=== PATIENT | female | born 1960 | race Caucasian/White ===

== ENCOUNTER 2017-11-25 06:37 | Day surgery (SDC) | payer BC ==
[2017-11-21 10:37] VITALS: BMI 25.2
[~2017-11-25 06:37] MED LIST: LACTATED RINGERS 1,000 ML IV SCH; LIDOCAINE 1% 20 ML VIAL (10MG/ML) FOR IV START INTRADERMA PRN; MIDAZOLAM 2 MG/2 ML VIAL IV PRN
[2017-11-25 07:10] VITALS: TEMP 98.4
[2017-11-25 07:12] LABS: Glucose,Whole Blood 249 mg/dL (75-99)
[2017-11-25] MEDS ORDERED: PROPOFOL 10 MG/ML 20 ML VIAL IV ONE (07:32)
[2017-11-25] MEDS ORDERED: MIDAZOLAM 2 MG/2 ML VIAL ONE (07:32)
[2017-11-25] MEDS ORDERED: LIDOCAINE 1% INJ 10MG/ML (20 ML MDV) ONE (07:32)
--- NOTE | 2017-11-25 08:09 | P.PCN ---
Date of Procedure: 11/25/17 Preoperative Diagnosis: Screening colonoscopy, family history of colon polyps, patient last scope 2006 Postoperative Diagnosis: Internal hemorrhoids Procedure(s) Performed: Colonoscopy, anoscopy Anesthesia: MAC Surgeon: Lashay Perez Estimated Blood Loss (ml): 0 IV fluids (ml): 300 Pathology: none sent Condition: stable Disposition: PACU Indications for Procedure: Patient's last colonoscopy 2006, family history colon polyps Operative Findings: Internal hemorrhoids, otherwise normal mucosa to cecum Description of Procedure: The patient was taken to the endoscopy suite and following sedation rectal exam was performed. Patient was noted to have good sphincter tone no masses. Colonoscope was passed through the anus into the rectum. Was passed through the sigmoid colon up to the splenic flexure. There was some sharp angulation at the splenic flexure however we were able to manipulate the scope into the transverse colon. Was passed through the transverse colon to the hepatic flexure right colon down to the area of the cecum. Approximately 8 minutes were taken to withdraw the scope from the cecum to the rectum. Careful observation mucosa did not reveal any lesions of concern in the cecum or right colon. No lesions of concern were noted in the transverse colon. No lesions of concern concern in the left colon or sigmoid colon. The scope was brought down into the rectum I was unable to retroflex the scope therefore anoscopic exam was performed. On anoscopic exam the patient was noted to have internal hemorrhoids. Otherwise no lesions of concern identified. Impression/plan: 1. Internal hemorrhoids Plan: 1. Repeat scope 7-10 years, would recommend yearly digital exam with Hemoccult testing if this is negative and the patient is asymptomatic she could have repeat scope in 7-10 years
--- NOTE | 2017-11-25 08:11 | P.DS ---
Providers Attending physician: Lashay Perez Primary care physician: Ambrose Carter Plan - Discharge Summary New Discharge Prescriptions: No Action Pravastatin Sodium [Pravachol] 20 mg PO HS Levothyroxine Sodium [Synthroid] 50 mcg PO MOTUWETHFR INSULIN LISPRO (For Pump) [humaLOG (For Pump)] 0.01 units SQ-PUMP CONTINUOUS Discharge Medication List INSULIN LISPRO (For Pump) [humaLOG (For Pump)] 0.01 units SQ-PUMP CONTINUOUS [History] Levothyroxine Sodium [Synthroid] 50 mcg PO MOTUWETHFR 11/21/17 [History] Pravastatin Sodium [Pravachol] 20 mg PO HS 11/21/17 [History] Patient Instructions/Handouts: *[facility] - (Anesthesia) Endoscopy Discharge Instructions, Colonoscopy (DC) Activity/Diet/Wound Care/Special Instructions: Do not drive today Discharge Disposition: HOME SELF-CARE
[2017-11-25 08:39] VITALS: BP 153/84; PULSE 71; RESP 18
== END 2017-11-25 08:45 | disposition home or self-care (01) ==
LOC: ORWHC2ENDO 06:37
PROVIDERS: ATTEND Surgery
DX: Z12.11 Encounter for screening for malignant neoplasm of colon (principal); K64.8 Other hemorrhoids; Z83.71 Family history of colonic polyps; K21.9 Gastro-esophageal reflux disease without esophagitis; E78.5 Hyperlipidemia, unspecified; E07.9 Disorder of thyroid, unspecified; E11.9 Type 2 diabetes mellitus without complications; Z79.4 Long term (current) use of insulin; Z96.41 Presence of insulin pump (external) (internal); Z79.1 Long term (current) use of non-steroidal anti-inflammatories (NSAID); Z79.890 Hormone replacement therapy; Z79.899 Other long term (current) drug therapy; Z87.891 Personal history of nicotine dependence
CPT/HCPCS: J2250; J2001; J2704; G0121

== ENCOUNTER → 2019-03-22 | Outpatient (CLI) | payer BC ==
--- NOTE | 2019-03-22 15:02 | MM ---
Reason for exam: screening (asymptomatic). Last mammogram was performed 1 year and 2 months ago. History: Patient is postmenopausal and is nulliparous. Family history of breast cancer in mother at age 43. Physical Findings: A clinical breast exam by your physician is recommended on an annual basis and results should be correlated with mammographic findings. MG 3D Screening Mammo W/Cad Bilateral CC and MLO view(s) were taken. Prior study comparison: January 13, 2018, mammogram. January 14, 2017, mammogram. The breast tissue is heterogeneously dense. This may lower the sensitivity of mammography. There is no discrete abnormality. No significant changes when compared with prior studies. ASSESSMENT: Negative, BI-RAD 1 RECOMMENDATION: Routine screening mammogram of both breasts in 1 year.
== END | disposition home or self-care (01) ==
LOC: RADMAMWWP 08:52
PROVIDERS: ATTEND Obstetrics & Gynecology
DX: Z12.31 Encounter for screening mammogram for malignant neoplasm of breast (principal); Z80.3 Family history of malignant neoplasm of breast
CPT/HCPCS: 77063; 77067

== ENCOUNTER → 2021-02-21 | Outpatient (CLI) | payer BC ==
--- NOTE | 2021-02-22 05:28 | MR ---
EXAMINATION TYPE: MR brain and iac wo/w con DATE OF EXAM: 02/21/2021 COMPARISON: None HISTORY: Acoustic nerve disorder, tinnitus, hearing loss, left, dizziness CONTRAST: Standard multiplanar, multisequence MRI departmental protocol utilizing 7 mL intravenous Gadavist andre olinium contrast. Multiplanar multiecho imaging of the brain without and with IV contrast. There are additional images of the posterior fossa. Ventricles have normal size. There is no mass effect nor midline shift. There is no sign of intracran ial hemorrhage. On the diffusion images there is a 4 mm focus of increased signal in the white matter right parietal lobe. There is cerebral cortical atrophy. There is minimal linear increased signal in the white matter adjacent to the lateral ventricles. The corpus callosum appears intact. The brainst em is intact. There is no evidence of a cerebellopontine angle mass. Sella turcica appears normal. There is no evid ence of orbital mass. The internal auditory canals appear normal. There is normal appearance of the acoustic nerve and vest ibular nerve. The semicircular canals and cochlea appear intact. I see no evidence of bony destructiv e process. There is no sign of mastoiditis. The contrast images show no pathologic enhancement. There is normal enhancement of the venous sinuses . The pituitary stalk is in the midline. Optic chiasm appears normal. There is mucosal thickening in the maxillary sinuses consistent with sinusitis. IMPRESSION: There is mild atrophy appropriate for age. There is small white matter high signal focus that could b e an acute lacunar infarct in the right parietal lobe. No evidence of focal posterior fossa abnormality.
== END | disposition home or self-care (01) ==
LOC: RADMRIMAIN 09:38
PROVIDERS: ATTEND Otolaryngology
DX: R93.0 Abnormal findings on diagnostic imaging of skull and head, not elsewhere classified (principal)
CPT/HCPCS: 70553; A9585

== ENCOUNTER → 2021-04-20 | Outpatient (CLI) | payer BC ==
[2021-04-20 12:22] LABS: Partial Thromboplastin Time 23.9 sec (22.0-30.0); Prothrombin Time 10.4 sec (9.0-12.0)
[2021-04-20 18:21] LABS: Basophils # (A) 0.06 X 10*3/uL (0.00-0.10); Basophils % (A) 1.2 %; HCT 42.9 % (37.2-46.3); HGB 14.6 g/dL (12.0-15.0); Lymphocytes # (A) 1.37 X 10*3/uL (0.90-5.00); MCH 32.3 pg (27.0-32.0); MCV 94.9 fL (80.0-97.0); Mean Platelet Volume 9.8 fL (9.5-12.2); Monocytes # (A) 0.44 X 10*3/uL (0.20-1.00); Neutrophils % (A) 59.4 %; Platelet Count 308 X 10*3/uL (140-440); RBC 4.52 X 10*6/uL (4.10-5.20); RDW 12.5 % (11.5-14.5); WBC 4.89 X 10*3/uL (4.50-10.00)
[2021-04-20 20:22] LABS: Erythrocyte Sedimentation Rate 8 mm/Hr (0-30)
[2021-04-20 21:54] LABS: Cardiolipin Ab IgG Interp NEGATIVE (NEGATIVE); Cardiolipin Ab IgM Interp NEGATIVE (NEGATIVE); Cardiolipin IgA Antibody <2.0 U/mL; Cardiolipin IgM Antibody 2.7 U/mL
== END | disposition home or self-care (01) ==
LOC: LABWHC1 10:16
PROVIDERS: ATTEND Psychiatry & Neurology Neurology
DX: I63.9 Cerebral infarction, unspecified (principal)
CPT/HCPCS: 36415; 83090; 85025; 85610; 85613; 85652; 85730; 86140; 86147

== ENCOUNTER → 2021-05-08 | Outpatient (CLI) | payer BC ==
--- NOTE | 2021-05-08 14:00 | MR ---
EXAMINATION TYPE: MR angio head wo/neck wo/w con DATE OF EXAM: 05/08/2021 COMPARISON: MRI brain 02/21/2021 HISTORY: Headaches, lightheaded, recent CVA, family hx aneurysm. TECHNIQUE: Time of flight images focusing on the [place] were performed without contrast.. 2-D and 3-D postprocessing imaging is performed on an alternate workstation. Postcontrast images also obtained through the neck with 3-D postprocessing performed, patient received 7 cc gadolinium wrist IV graft FINDINGS: The brain shows patent anterior and posterior circulation, there is no evident dissection, aneurysm, embolus, or significant stenosis. Somewhat atrophic posterior communicating artery on the r ight with near development of origin of the posterior cerebral artery on the right is normal va riant, congenital. The transverse aorta, innominate, left and right common carotid, left and right subclavian arteries a re patent. The internal and external carotid arteries are patent. No evident dissection. There is a m ild proximal stenosis of the internal carotid artery on the left which shows less than 50% diameter r eduction, NASCET criteria. Vertebral arteries are codominant. IMPRESSION: No significant abnormality
== END | disposition home or self-care (01) ==
LOC: RADMRIMAIN 09:11
PROVIDERS: ATTEND Psychiatry & Neurology Neurology
DX: R51.9 Headache, unspecified (principal); R42 Dizziness and giddiness; Z86.73 Personal history of transient ischemic attack (TIA), and cerebral infarction without residual deficits
CPT/HCPCS: 70544; 70549; A9585

== ENCOUNTER → 2021-06-13 | Outpatient (CLI) | payer BC ==
--- NOTE | 2021-06-14 10:00 | ECHOF ---
Referral Reason:I74.9 Embolism and thrombosis of unspecified MEASUREMENTS -------- HEIGHT: 167.6 cm WEIGHT: 66.2 kg BP: RVIDd: 2.4 cm (< 3.3) IVSd: 1.1 cm (0.6 - 1.1) LVIDd: 3.2 cm (3.9 - 5.3) LVPWd: 1.1 cm (0.6 - 1.1) IVSs: 1.5 cm LVIDs: 2.1 cm LVPWs: 1.7 cm LAESV Index (A-L): 21.01 ml/m Ao Diam: 2.8 cm (2.0 - 3.7) AV Cusp: 1.7 cm (1.5 - 2.6) LA Diam: 2.9 cm (2.7 - 3.8) MV EXCURSION: 14.523 mm (> 18.000) MV EF SLOPE: 38 mm/s (70 - 150) EPSS: 0.2 cm MV E Ryan: 0.86 m/s MV DecT: 153 ms MV A Ryan: 0.98 m/s MV E/A Ratio: 0.89 RAP: 5.00 mmHg RVSP: 26.01 mmHg FINDINGS -------- Sinus rhythm. This was a technically adequate study. The left ventricular size is normal. There is borderline concentric left ventricular hypertrophy. Overall left ventricular systolic function is normal with, an EF between 65 - 70 %. The diastolic filling pattern is normal for the age of the patient 13.82. The right ventricle is normal in size. Normal LA size by volume 22+/-6 ml/m2. The right atrial size is normal. Mobile interatrial septum. The aortic valve is trileaflet and appears structurally normal. There is no evidence of aortic regu rgitation. There is no evidence of aortic stenosis. No mitral regurgitation. Redundant MV Leaflet Mild tricuspid regurgitation present. There is no evidence of pulmonary hypertension. The right v entricular systolic pressure, as measured by Doppler, is 26.01mmHg. Trace/mild (physiologic) pulmonic regurgitation. The aortic root size is normal. IVC Not well visulized. There is no pericardial effusion. CONCLUSIONS -------- 1. The left ventricular size is normal. 2. There is borderline concentric left ventricular hypertrophy. 3. Overall left ventricular systolic function is normal with, an EF between 65 - 70 %. 4. The diastolic filling pattern is normal for the age of the patient 13.82 5. Mobile interatrial septum. 6. Mild tricuspid regurgitation present. 7. Trace/mild (physiologic) pulmonic regurgitation. DOGMAN/WOMAN: Elodia Gonzalez RDCS
== END | disposition home or self-care (01) ==
LOC: RADECHMAIN 11:16
PROVIDERS: ATTEND Psychiatry & Neurology Neurology
DX: I07.1 Rheumatic tricuspid insufficiency (principal); I37.1 Nonrheumatic pulmonary valve insufficiency
CPT/HCPCS: 93306

== ENCOUNTER 2021-10-24 07:12 | Day surgery (SDC) | payer BC ==
[2021-10-24] MEDS ORDERED: LACTATED RINGERS 1,000 ML IV SCH (07:43)
[2021-10-24] MEDS ORDERED: LIDOCAINE 1% (10MG/ML) FOR IV START INTRADERMA PRN (07:43)
[2021-10-24 07:52] VITALS: TEMP 97.7
[2021-10-24 08:08] LABS: Glucose,Whole Blood 190 mg/dL (75-99)
[2021-10-24] MEDS ORDERED: PROPOFOL 10 MG/ML 20 ML VIAL IV ONE (08:51)
[2021-10-24] MEDS ORDERED: LIDOCAINE 1% INJ 10MG/ML (20 ML MDV) ONE (08:51)
--- NOTE | 2021-10-24 09:07 | P.PCN ---
Date of Procedure: 10/24/21 Procedure(s) Performed: BRIEF HISTORY: Patient is a 61-year-old pleasant female scheduled for an elective colonoscopy as a part of evaluation of of intermittent rectal bleeding for the last few days duration. Her last colonoscopy was 5 years ago. PROCEDURE PERFORMED: Colonoscopy. PREOPERATIVE DIAGNOSIS: Intermittent rectal bleeding. IV sedation per Anesthesia. PROCEDURE: After informed consent was obtained, the patient, was brought into the endoscopy unit. IV sedation was administered by Anesthesia under continuous monitoring. Digital rectal examination was normal. Initially the Olympus CF-160 flexible video colonoscope was then inserted in the rectum, gradually advanced into the cecum without any difficulty. Careful examination was performed as the scope was gradually being withdrawn. Ileocecal valve and the appendiceal orifice were visualized and appeared normal. Prep was good.. Mucosa of the cecum, ascending colon, transverse colon, descending colon, sigmoid colon, and rectum appeared normal. Retroflexion was performed in the rectum and small internal hemorrhoids were seen. The patient tolerated the procedure well. IMPRESSION: Normal-appearing colon from rectum to cecum with no evidence of colorectal neoplasia . Small internal hemorrhoids. RECOMMENDATIONS: Findings of this examination were discussed with the patient family.. She was advised to be a high-fiber diet and take fiber supplements a regular basis and avoid straining and constipation. She can have a repeat screening colonoscopy in 10 years.
[2021-10-24 09:26] VITALS: BP 147/81; PULSE 74; RESP 16
== END 2021-10-24 09:51 | disposition home or self-care (01) ==
LOC: ORWHC2ENDO 07:12
PROVIDERS: ATTEND Internal Medicine Gastroenterology
DX: K64.8 Other hemorrhoids (principal); E78.5 Hyperlipidemia, unspecified; E11.9 Type 2 diabetes mellitus without complications; E07.9 Disorder of thyroid, unspecified; Z79.890 Hormone replacement therapy; Z79.899 Other long term (current) drug therapy; Z79.4 Long term (current) use of insulin
CPT/HCPCS: 45378; J2001; J2704